=== PATIENT | male | born 2005 | race Two or more races ===

== ENCOUNTER 2023-01-20 04:36 | Emergency (ER) | payer OTHER, SELFPAY ==
[2023-01-20] MEDS ORDERED: Ondansetron PF 4 MG/2 ML Vial ONE (04:45)
== END 2023-01-20 05:28 | disposition home or self-care (01) ==
LOC: CSHERS 04:36
DX: F10.129 Alcohol abuse with intoxication, unspecified (principal); J45.909 Unspecified asthma, uncomplicated
CPT/HCPCS: 36416; 96374; J2405